=== PATIENT | female | born 1965 | race Caucasian/White ===

== ENCOUNTER → 2018-03-01 15:30 | Outpatient (CLI) | payer OTHER, SELFPAY ==
[2018-03-06 19:17] LABS: HPV Reflexed? NOT INDICATED
== END ==
PROVIDERS: Referring Provider Obstetrics & Gynecology; Visit Provider Obstetrics & Gynecology
DX: Z12.4 Encounter for screening for malignant neoplasm of cervix (principal)
CPT/HCPCS: 88175; G0145

== ENCOUNTER → 2018-05-09 08:42 | Outpatient (CLI) | payer OTHER, SELFPAY ==
--- NOTE | 2018-05-09 08:50 | BI_ITS ---
MAMMOGRAPHY - BILATERAL DIAGNOSTIC REASON FOR EXAM: Female, 52 years old. Abnormal screening mammogram. PERTINENT HISTORY: Non-contributory. TECHNIQUE: Compression spot views of both breasts in the MLO and craniocaudad projections views of both breasts were obtained. CAD: Full Field Digital Mammography with Computer Added Detection was performed. COMPARISON: Comparison is made with prior examination dated February 21, 2018. FINDINGS: Breast Composition: The breasts are heterogeneously dense, which may obscure small masses. There is evidence of a 7.3 mm well-defined nodule in the slightly lateral midportion of the left breast. No definite nodule is seen in the right breast. There are no dominant masses or suspicious calcifications. No other significant abnormalities are identified. BI/DIAG MAMM W/CAD, BILAT IMPRESSION: Stable bilateral diagnostic mammogram. Correlation with ultrasound of both breasts is recommended for further evaluation. ASSESSMENT CATEGORY: BIRADS Category 2: Benign. A letter regarding these results will be sent to the patient by the facility within 30 days. Approximately 10% of breast cancers are not detected by mammography. A normal mammogram should not delay biopsy of a clinically suspicious abnormality. Electronically Signed: Nilo Pryor MD at 12:32 EST , Service support ,
--- NOTE | 2018-05-09 08:50 | US_ITS ---
STUDY: ULTRASOUND BREAST - RIGHT REASON FOR EXAM: Female, 52 years old. Abnormal screening mammogram. TECHNIQUE: Axial and longitudinal images of the RIGHT breast were performed with a high resolution ultrasound transducer. COMPARISON: Comparison is made with prior mammogram done earlier today. FINDINGS: RIGHT Breast: 3 subcentimeters cysts are seen. There is a 9 mm x 6 mm x 4 mm cyst at the 12:00 position of the breast at 1 cm from the nipple. A septation is seen within it. There is a 5 mm x 7 mm x 9 mm cyst at the 12:00 position of the breast at 1 cm from nipple as well. There is also evidence of a 4 mm x 5 mm x 4 mm cyst at the 4:00 position breast at 2 cm from the nipple. IMPRESSION: 3 some centimeter cysts as described. ASSESSMENT CATEGORY: BIRADS Category 2: Benign. A letter regarding these results will be sent to the patient by the facility within 30 days. Electronically Signed: Nilo Pryor MD at 13:00 EST , Service support , STUDY: ULTRASOUND BREAST - LEFT REASON FOR EXAM: Female, 52 years old. Abnormal screening mammogram. TECHNIQUE: Axial and longitudinal images of the LEFT breast were performed with a high resolution ultrasound transducer. COMPARISON: Comparison is made with prior mammogram done earlier in the day. FINDINGS: LEFT Breast: There is a 6 mm x 6 mm x 4 mm cyst at the 4:00 position of the breast at 5 cm from the nipple. There is also evidence of a 9 mm x 8 mm x 6 mm cyst at the 4:00 position in the breast at 3 cm from the nipple. US/Breast Limited Unilateral IMPRESSION: 2 small subcentimeters cysts at the 4:00 position of the breast. ASSESSMENT CATEGORY: BIRADS Category 2: Benign. A letter regarding these results will be sent to the patient by the facility within 30 days. Electronically Signed: Nilo Pryor MD at 13:01 EST , Service support ,
== END ==
PROVIDERS: Family Provider Family Medicine; PCP Family Medicine; Referring Provider Obstetrics & Gynecology; Visit Provider Obstetrics & Gynecology
DX: R92.2 Inconclusive mammogram (principal)
CPT/HCPCS: 76642; 77066